=== PATIENT | male | born 1975 | race Caucasian/White ===

== ENCOUNTER 2019-08-11 21:52 | Emergency (ER) | payer SELFPAY ==
[~2019-08-11] VITALS: Ht 172.7 cm; Wt 81.8 kg
[2019-08-11 22:05] VITALS: Ht 172.7 cm; Wt 81.8 kg
[2019-08-11] MEDS ORDERED: LISINOPRIL10 MG PO (22:07)
[2019-08-11] MEDS ORDERED: ADDERALL 30 MG30 MG PO (22:07)
[2019-08-11] MEDS ORDERED: KENALOG 0.1 % O15 GM TOPICAL (22:33)
[2019-08-11] MEDS ORDERED: ZOVIRAX800 MG PO (22:33)
[2019-08-11 22:52] VITALS: BP 124/88
== END 2019-08-11 22:53 | disposition home or self-care (01) ==
LOC: D.ER 21:52
DX: R21 Rash and other nonspecific skin eruption (principal); J45.909 Unspecified asthma, uncomplicated; I10 Essential (primary) hypertension